=== PATIENT | female | born 1995 | race Caucasian/White ===

== ENCOUNTER 2017-05-23 09:49 | Day surgery (SDC) | payer OTHER ==
[2017-05-20 15:07] LABS: Urine Appearance CLEAR; Urine Bilirubin NEGATIVE (NEG); Urine Blood NEGATIVE (NEG); Urine Color YELLOW; Urine Glucose NEGATIVE (NEG); Urine Protein NEGATIVE (NEG); Urine Specific Gravity 1.025 (1.005-1.030); Urine Urobilinogen 0.2 mg/dL (0.2-1.0)
[2017-05-20 15:11] LABS: Absolute Lymphocytes (CBC) 1.7 K/uL (0.7-4.9); Absolute Monocytes 0.4 K/uL (0.1-1.3); Absolute Neutrophil 3.5 K/uL (1.8-8.0); Basophils % 0.6 % (0-1.3); Eosinophils % 2.1 % (0-4.4); Hematocrit 38.7 % (36.0-45.0); Lymphocytes % 29.6 % (15.3-44.8); MCH 24.2 pg (27.0-35.0); MCV 78.4 fL (80-100); MPV 10.7 fL (7.6-11.3); Monocytes % 6.9 % (3.3-12.3); RBC Red Blood Cell Count 4.94 M/uL (3.86-4.86)
[2017-05-20 15:15] LABS: Urine Microscopic Reflex NO UMIC
[2017-05-23] MEDS ORDERED: Ringers Lactate 1,000 ML IV ONE ×2 (10:23→13:53)
[2017-05-23] MEDS ORDERED: SCOPOLAMINE HYDROBROMIDE PATCH TD ONE (10:23)
[2017-05-23] MEDS ORDERED: PROPOFOL 200 MG/20 ML VIAL IV ONE (12:51)
[2017-05-23] MEDS ORDERED: FENTANYL CITR 100 MCG/2 ML ONE (12:51)
[2017-05-23] MEDS ORDERED: ROCURONIUM 50 MG/5 ML VIAL IV ONE (12:51)
[2017-05-23] MEDS ORDERED: LIDOCAINE 1% MPF 5 ML VIAL ONE (12:51)
[2017-05-23] MEDS ORDERED: MIDAZOLAM HCL 2 MG/2 ML INJ ONE (12:51)
[2017-05-23] MEDS ORDERED: Phenylephrine HCl 10 MG/ML 1 ML VIAL ONE (13:39)
[2017-05-23] MEDS ORDERED: NS 0.9% VIAL 10 ML ONE (13:39)
[2017-05-23] MEDS ORDERED: DEXAMETHASONE 10 MG/ML VIAL ONE (13:49)
[2017-05-23] MEDS ORDERED: KETOROLAC 30 MG/ML INJ ONE (13:49)
[2017-05-23] MEDS ORDERED: ONDANSETRON 4 MG/2 ML VIAL ONE (13:51)
[2017-05-23] MEDS ORDERED: GLYCOPYRROLATE 0.2 MG/ML SYR ONE (14:14)
[2017-05-23] MEDS ORDERED: NEOSTIGMINE 1 MG/ML -5 ML SYRINGE ONE (14:14)
[2017-05-23] MEDS: PROMETHAZINE 25 MG/ML VIAL ONE ×2 (14:25→14:40)
[2017-05-23] MEDS: MEPERIDINE HCL 50 MG/ML AMP ONE ×4 (14:27→14:50)
[2017-05-23] MEDS ORDERED: Mastisol Adhesive Liq ONE (14:28)
[2017-05-23 15:26] VITALS: BP 126/65; TEMP 97.2; O2SAT 100
--- NOTE | 2017-05-24 07:15 | OP ---
Date of Procedure: 05/23/2017 Surgeon: Brinda Grimes MD Preoperative Diagnoses: 1.Low back pain. 2.Heavy periods with irregular cycles. 3.Dysmenorrhea. 4.Anemia. Procedures Performed: Diagnostic hysteroscopy, diagnostic laparoscopy. Anesthesia: General. Estimated Blood Loss: Minimal. Specimens: No specimens. Complications: No complications. Drains: No drains. Condition: Stable. Indications: The patient is a 22-year-old, who has been on NuvaRing. Her abnormal bleeding, pelvic pain, and dysmenorrhea were the reason that she was seeing me. There was intermittent low back pain. However, a few weeks earlier, she had really acute low back pain. She was worked up for her urinar y tract and negative for stone. She has been Dr. Keita's patient for about a year and a half. Co lonoscopy, upper endoscopy all were done and negative. He referred her to me for ruling out INSTRUCTOR PSYCHIATRIC AIDE etio logy. She has taken naproxen in the past for dysmenorrhea. Her dysmenorrhea is severe and mostly in the entire pelvic area. Her low back pain starts even prior to the onset of period and is severe at the time of the period. Bowels, she denies being having pain with them and no lower urinary tract s ymptoms during her period. Sexually active, but no vaginal penetration, so the patient has no known deep dyspareunia. On exam, uterus was small, nontender. No adnexal masses. On pelvic ultrasound, n o adnexal masses were noted either. We discussed the options of continued medical treatment since sh e failed combination hormones with the NuvaRing that failed to control her pain. Discussed about Dep ot medroxyprogesterone. We also discussed about the fact that she can continue to use naproxen for h er back pain and also if my workup is negative for endometriosis which is the only possibility, then she will have to return to her GI for this problem. The patient desired to proceed with laparoscopic evaluation for diagnosis and treatment of endometrio sis if present. Diagnostic laparoscopy was also encouraged to be done to rule out any mullerian anom alies. Procedure In Detail: After informed consent was verified, the patient was taken back to the OR, plac ed in a supine fashion on the operating table. After general anesthesia was given, she was placed in dorsal lithotomy position. Pelvic exam was performed. Uterus was found to be anteflexed, small. N o adnexal masses. Abdomen, vulva, vagina, and perineum were prepped and draped in a sterile fashion. Helton was placed to drain the bladder. The cervix was exposed with a bivalve speculum. Anterior lip grasped with 2 A llis clamps. Using the diagnostic SlimLine hysteroscope, the direct hysteroscopy was performed with a 30-degree lens and normal saline for distention medium. The entire cavity was visualized. There a ppeared to be a small indentation of the fundal aspect of the endometrial canal and this could repres ent a small septum; however, this was very small and not very significant. Both tubal ostia were vis ualized. There was a single normal cavity with a single cervix. After the scope was removed, the diagnostic VCare was introduced into the uterus and fixed in place. There was no need for sampling because there were no endometrial abnormalities. After the 1 cm infraumbilical incision was made with the scalpel and using the open laparoscopy techn ique, fascia was opened up and incised, tagged on both sides with 0 Vicryl sutures, and then peritone al cavity entered with S retractors and Ashleigh fixed in place. Site of entry was checked, was unrema rkable. Liver and gallbladder appeared to be unremarkable. The peritoneal surfaces in the upper abd omen were normal. The patient was placed in Trendelenburg position. A 5 mm left lower quadrant port was placed under direct vision and the entire pelvic cavity was surveyed closely including the ovari es, tubes, lateral peritoneum, and the posterior broad ligament on both sides and cul-de-sac and then anterior broad ligaments on both sides and anterior cul-de-sac between the tube and the ovary and be tween the tube and the round ligament. There was no evidence of endometriosis even on close inspecti on, and there was no anatomical distortion of the pelvic organs like the ureter. The plan was to take a look at the appendix and so I lead that to status post appendectomy and the en tire appendix was removed. However, the cecum was found to be significantly dilated and full of feca l matter. This continued all over in the ascending colon, transverse colon, all the way down to the descending colon. However, the sigmoid appeared to be unremarkable and decompressed. Constipation w as a significant abnormality found. There was a small segment of small bowel that was adhered to the right pelvic brim, unsure if this was status post appendectomy or a bowel process. However, no acti ve inflammatory process had been noted here today. After this was done and there was no dilation of tubes or ovaries, I decided to complete the case. On the right ovary, there was a small fibroma whic h is less than 2-3 mm. After all pictures were taken, the scope was removed. Trocars were removed under direct vision. The umbilicus was closed with the help of a 0 Vicryl in [id number] fashion and 4-0 Monocryl interru pted for all skin incisions. VCare and Helton were removed. NuvaRing was removed at the beginning of the case and replaced at the end after washing with normal temperature water. She will follow up wi th me in 1 week. Instrument, needle, and sponge counts were correct at the end of the case. The pat ient tolerated the procedure well. She was extubated in the OR and taken to PACU in stable condition . RODERICK/QUITA Voice ID: [id number] Report ID: [id number]
== END 2017-05-23 16:02 | disposition home or self-care (01) ==
LOC: OR 09:49
PROVIDERS: ATTEND Obstetrics & Gynecology
PROC: 0WJP4ZZ Inspection of Gastrointestinal Tract, Percutaneous Endoscopic Approach (ICD-10-PCS; 2017-05-23)
PROC: 0WJG4ZZ Inspection of Peritoneal Cavity, Percutaneous Endoscopic Approach (ICD-10-PCS; 2017-05-23)
PROC: 0WJJ4ZZ Inspection of Pelvic Cavity, Percutaneous Endoscopic Approach (ICD-10-PCS; 2017-05-23)
PROC: 0UJD8ZZ Inspection of Uterus and Cervix, Via Natural or Artificial Opening Endoscopic (ICD-10-PCS; principal; 2017-05-23 11:30)
DX: N92.1 Excessive and frequent menstruation with irregular cycle (principal); N94.6 Dysmenorrhea, unspecified; D64.9 Anemia, unspecified; M54.5 Low back pain; K59.00 Constipation, unspecified; K21.9 Gastro-esophageal reflux disease without esophagitis; Z90.49 Acquired absence of other specified parts of digestive tract; Z82.49 Family history of ischemic heart disease and other diseases of the circulatory system; Z83.3 Family history of diabetes mellitus; Z80.0 Family history of malignant neoplasm of digestive organs
CPT/HCPCS: 36415; 81003; 81025; 85025; 86850; 86900; 86901; J1100; J2175; J2250; J2370; J2405; J2550; J2710; J3010

== ENCOUNTER 2019-09-07 11:54 | Emergency (ER) | payer BC, OTHER ==
--- OUTSIDE RECORDS SUMMARY | 2019-09-07 14:23 | XMS REPORT | Continuity of Care Document ---
:[address] [facility] t Address [address] [place] [address] Care Team Providers Name Role Phone Doctor Unassigned, Name Attending Clinician Unavailable Estrella Rollins MD Attending Clinician Problems This patient has no known problems. Allergies, Adverse Reactions, Alerts This patient has no known allergies or adverse reactions. Medications This patient has no known medications. Procedures This patient has no known procedures. Encounters Start End Encounter Admission Attending Care Care Encounter Source Date/Time Date/Time Type Type Clinicians Facility Department ID 2018-11-12 2018-11-12 Orders Doctor HENRIQUE [id number] 00:00:00 00:00:00 Only Unassigned, RON [id number] [place] [facility] [id number] 2018-10-31 2018-10-31 Office GE Rollins [id number] 10:36:38 10:54:17 Visit [facility] [id number] Surgical [id number] Specialti [id number] [address] [place] Results This patient has no known results.
--- NOTE | 2019-09-07 15:56 | RAD REPORT ---
EXAM DESCRIPTION: RAD - Chest Pa And Lat (2 Views) - 09/07/2019 3:46 pm CLINICAL HISTORY: COUGH Chest pain. COMPARISON: Chest Pa And Lat (2 Views) dated 07/22/2018; Chest Pa And Lat (2 Views) dated 12/18/2016 FINDINGS: The lungs are clear. The heart is normal in size. No displaced fractures. IMPRESSION: No acute or concerning finding suspected.
--- NOTE | 2019-09-07 16:05 | EDPHYS ---
Physician Documentation [facility] Name: Arlette Blanca Age: 24 yrs Sex: Female : 1995 Arrival Date: 09/07/2019 Time: 11:59 Bed 18 Private MD: MILEY Physician Milan Pittman HPI: 09/06 14:30 This 24 yrs old Female presents to ER via Ambulatory with complaints of Chest cp Tightness, Shortness Of Breath. Historical: - Allergies: 12:27 Tylenol-Codeine #3; ll1 - PSHx: 12:27 Appendectomy; Tonsillectomy; ll1 - Immunization history:: Flu vaccine is not up to date. - Social history:: Smoking status: Patient denies any tobacco usage or history of. Patient/guardian denies using alcohol, street drugs, tobacco products. ROS: 14:35 Constitutional: Positive for chills, Negative for fever, poor PO intake. cp 14:35 Eyes: Negative for injury, pain, redness, and discharge. cp 14:35 ENT: Positive for sore throat, Negative for drainage from ear(s), ear pain, difficulty swallowing, difficulty handling secretions. 14:35 Cardiovascular: Negative for chest pain, edema, palpitations. 14:35 Respiratory: Positive for cough, shortness of breath, Negative for wheezing. 14:35 Abdomen/GI: Negative for abdominal pain, nausea, vomiting, and diarrhea, constipation. 14:35 Back: Negative for radiated pain. 14:35 Skin: Negative for rash. 14:35 Neuro: Negative for altered mental status, headache, weakness. 14:35 All other systems are negative. Exam: 14:40 Constitutional: The patient appears in no acute distress, alert, awake, non-toxic, well cp developed, well nourished. 14:40 Head/Face: Normocephalic, atraumatic. cp 14:40 Eyes: Periorbital structures: appear normal, Conjunctiva: normal, no exudate, no injection, Lids and lashes: appear normal, bilaterally. 14:40 ENT: External ear(s): are unremarkable, Ear canal(s): are normal, clear, TM's: dullness, bilaterally, Nose: is normal, Mouth: Lips: moist, Oral mucosa: pink and intact, moist, Posterior pharynx: Airway: no evidence of obstruction, patent, Tonsils: no enlargement, no exudate, swelling, is not appreciated, erythema, that is mild, exudate, is not appreciated. 14:40 Neck: ROM/movement: is normal, is supple, without pain, no range of motions limitations, no meningismus, no nuchal rigidity, Lymph nodes: no appreciated lymphadenopathy. 14:40 Chest/axilla: Inspection: normal. 14:40 Cardiovascular: Rate: normal, Rhythm: regular, Edema: is not appreciated, JVD: is not appreciated. 14:40 Respiratory: the patient does not display signs of respiratory distress, Respirations: normal, no use of accessory muscles, no retractions, no tachypnea, labored breathing, is not present, Breath sounds: bronchial sounds, are not appreciated, decreased breath sounds, are not appreciated, stridor, is not appreciated, wheezing: is not appreciated. 14:40 Abdomen/GI: Exam negative for discomfort, distension, guarding, Inspection: abdomen appears normal. 14:40 Back: pain, is absent, ROM is normal. 14:50 ECG was reviewed by the Attending Physician. Vital Signs: 12:24 BP 119 / 63; Pulse 97; Resp 18; Temp 98.4; Pulse Ox 95% ; Pain 6/10; ll1 MDM: 14:20 Patient medically screened. ella 15:56 Test interpretation: by ED physician or midlevel provider: chest xray negative for cp focal pneumonia. 16:04 Antibiotic administration: Not indicated, the patient does not have an appreciated cp infiltrate. 16:04 Differential diagnosis: bronchitis, flu, URI, pneumonia. Data reviewed: vital signs, nurses notes, EKG, radiologic studies, plain films. Counseling: I had a detailed discussion with the patient and/or guardian regarding: the historical points, exam findings, and any diagnostic results supporting the discharge/admit diagnosis, radiology results, to return to the emergency department if symptoms worsen or persist or if there are any questions or concerns that arise at home. 09/06 14:26 Order name: Influenza Screen (a \T\ B); Complete Time: 15:59 cp 09/06 14:26 Order name: Strep; Complete Time: 15:59 cp 09/06 14:26 Order name: XRAY Chest Pa And Lat (2 Views); Complete Time: 15:59 09/06 15:59 Interpretation: Report reviewed. 09/06 14:26 Order name: EKG; Complete Time: 14:27 09/06 14:26 Order name: EKG - Nurse/Tech; Complete Time: 15:35 09/06 15:14 Order name: Throat Culture EDRI EC:50 Rate is 85 beats/min. Rhythm is regular. AL interval is normal. QRS interval is normal. cp QT interval is normal. Interpreted by me. Reviewed by me. Administered Medications: No medications were administered Disposition: 09/07 05:45 Co-signature as Attending Physician, Milan Pittman MD I agree with the assessment and [facility] plan of care. Disposition: 09/07/19 16:05 Discharged to Home. Impression: Acute bronchitis, unspecified. - Condition is Stable. - Discharge Instructions: Acute Bronchitis, Adult. - Prescriptions for Guaifenesin AC 10- 100 mg/5 mL Oral Liquid - take 10 milliliters by ORAL route every 4 hours As needed; 200 milliliter. Medrol (Jay Jay) 4 mg Oral Tablets, Dose Pack - take 1 tablet by ORAL route as directed - follow package instructions; 1 packet. Xopenex HFA 45 mcg/actuation Inhalation HFA aerosol inhaler - inhale 2 puff by INHALATION route every 6 hours; 1 Inhaler. - Medication Reconciliation Form, Thank You Letter, Antibiotic Education, Prescription Opioid Use, Work release form form. - Follow up: Private Physician; When: 2 - 3 days; Reason: Recheck today's complaints. - Problem is new. - Symptoms have improved. Signatures: Dispatcher [employer] [facility] Milan Pittman MD MD cha Page, Corey, PA PA cp Harris, Amy, RN RN Anil Price RN RN ll1 Corrections: (The following items were deleted from the chart) 09/06 16:31 16:05 09/07/2019 16:05 Discharged to Home. Impression: Acute bronchitis, unspecified. Condition is Stable. Forms are Medication Reconciliation Form, Thank You Letter, Antibiotic Education, Prescription Opioid Use. Follow up: Private Physician; When: 2 - 3 days; Reason: Recheck today's complaints. Problem is new. Symptoms have improved. cp
--- NOTE | 2019-09-07 16:05 | ER ---
Nurse's Notes [facility] Name: Arlette Blanca Age: 24 yrs Sex: Female : 1995 Arrival Date: 09/07/2019 Time: 11:59 Bed 18 Private MD: Diagnosis: Acute bronchitis, unspecified Presentation: 09/06 12:24 Chief complaint: Patient states: Cough, chest tightness, SOB since 09/02/19. Barnett test ll1 negative. Sent by PCP for further eval. Coronavirus screen: Surgical mask placed on patient. Patient moved to private room, placed in contact and droplet isolation with eye protection until further assessment. Patient reports a cough. Patient reports shortness of breath or difficulty breathing. Patient denies measured and/or subjective temperature greater than 100.4F prior to today's visit. Patient denies travel on a cruise ship or to a country the [facility] currently lists as an affected area. Patient denies contact with known and/or suspected case of COVID-19. covid test negative result today. Ebola Screen: Patient denies travel to an Ebola-affected area in the 21 days before illness onset. Initial Sepsis Screen: Does the patient meet any 2 criteria? HR > 90 bpm. No. Patient's initial sepsis screen is negative. Risk Assessment: Do you want to hurt yourself or someone else? Patient reports no desire to harm self or others. Onset of symptoms was September 02, 2019. 12:24 Method Of Arrival: Ambulatory ll1 12:24 Acuity: IDA 3 ll1 15:40 Initial Sepsis Screen: Does the patient have a suspected source of infection? No. Patient's initial sepsis screen is negative. Historical: - Allergies: 12:27 Tylenol-Codeine #3; ll1 - PSHx: 12:27 Appendectomy; Tonsillectomy; ll1 - Immunization history:: Flu vaccine is not up to date. - Social history:: Smoking status: Patient denies any tobacco usage or history of. Patient/guardian denies using alcohol, street drugs, tobacco products. Screenin:39 Abuse screen: Denies threats or abuse. Nutritional screening: No deficits noted. Tuberculosis screening: No symptoms or risk factors identified. 16:31 Fall Risk None identified. Assessment: 15:36 General: Appears in no apparent distress. Behavior is calm, cooperative, appropriate ah for age. Pain: Complains of pain in chest. Neuro: Level of Consciousness is awake, alert. Cardiovascular: Capillary refill < 3 seconds Patient's skin is warm and dry. Respiratory: Reports cough that is non-productive, Airway is patent Respiratory effort is even, unlabored, Respiratory pattern is regular, symmetrical, Onset: The symptoms/episode began/occurred 6 days. Derm: Skin is intact, is healthy with good turgor. 16:15 Pain: Pain does not radiate. Vital Signs: 12:24 BP 119 / 63; Pulse 97; Resp 18; Temp 98.4; Pulse Ox 95% ; Pain 6/10; ll1 ED Course: 11:59 Patient arrived in ED. mr 12:26 Triage completed. ll1 12:27 Arm band placed on Patient notified of wait time. ll1 13:31 Diana Flaherty, RN is Primary Nurse. 14:10 Milan Seth PA is PHCP. cp 14:10 Milan Pittman MD is Attending Physician. cp 14:51 EKG done, by technology infusion specialist. reviewed by Milan ROBBINS. at1 15:39 Patient has correct armband on for positive identification. Pulse ox on. NIBP on. ah 15:46 XRAY Chest Pa And Lat (2 Views) In Process Unspecified. EDMS 16:15 No provider procedures requiring assistance completed. Patient did not have IV access ah during this emergency room visit. Patient maintains SpO2 saturation greater than 95% on room air. Administered Medications: No medications were administered Outcome: 16:05 Discharge ordered by MD. cp 16:15 Discharged to home ambulatory. 16:15 Condition: good 16:15 Discharge instructions given to patient, Instructed on discharge instructions, follow up and referral plans. Demonstrated understanding of instructions, follow-up care, medications, Prescriptions given X 3. 16:31 Patient left the ED. Signatures: Dispatcher [employer] EDMS Shannon Remy Amanda, database security expert EKG Tat1 Milan Seth PA PA cp Harris, Amy, RN RN Anil Price RN RN ll1 Corrections: (The following items were deleted from the chart) 12:27 12:24 BP 119 / 63; Pulse 97bpm; Resp 18bpm; Pulse Ox 94%; Temp 98.4F; Pain 6/10; ll1 ll1
[2019-09-07 16:41] VITALS: BP 119/63; TEMP 98.4; O2SAT 95
--- NOTE | 2019-09-08 12:11 | EKG ---
Test Date: 2019-09-07 Test Time: 14:42:57 Tab Card Press Operator: KALLIE MEASUREMENT RESULTS: Intervals: Rate: 85 DE: 138 QRSD: 74 QT: 362 QTc: 430 [place]: P: 21 DE: 138 QRS: 15 T: 39 INTERPRETIVE STATEMENTS: Normal sinus rhythm Normal ECG No previous ECG available for comparison Electronically Signed On 09-08-19 12:09:34 CDT by Cristi Pressley
== END 2019-09-07 16:31 | disposition home or self-care (01) ==
LOC: ER 11:54
DX: J20.9 Acute bronchitis, unspecified (principal); Z88.6 Allergy status to analgesic agent
CPT/HCPCS: 71046; 87070; 87081; 87804; 93005; 99284

== ENCOUNTER 2019-09-08 12:52 | Emergency (ER) | payer BC, OTHER ==
--- NOTE | 2019-09-08 15:34 | ER ---
Nurse's Notes [facility] Name: Arlette Blanca Age: 24 yrs Sex: Female : 1995 Arrival Date: 09/08/2019 Time: 12:56 Bed Waiting Private MD: Diagnosis: Presentation: 09/07 13:46 Coronavirus screen: Surgical mask placed on patient. Patient moved to private room, ll1 placed in contact and droplet isolation with eye protection until further assessment. Patient reports a cough. Patient reports shortness of breath or difficulty breathing. Patient denies measured and/or subjective temperature greater than 100.4F prior to today's visit. Patient denies travel on a cruise ship or to a country the [facility] currently lists as an affected area. Patient reports contact with known and/or suspected case of COVID-19. Ebola Screen: Patient denies travel to an Ebola-affected area in the 21 days before illness onset. Initial Sepsis Screen: Does the patient meet any 2 criteria? No. Patient's initial sepsis screen is negative. Risk Assessment: Do you want to hurt yourself or someone else? Patient reports no desire to harm self or others. Onset of symptoms was September 03, 2019. 13:46 Method Of Arrival: Ambulatory ll1 13:46 Acuity: IDA 3 ll1 13:47 Chief complaint: Patient states: SOB has gotten worse since visit yesterday. Had ll1 negative covid test. Couldn't get inhaler filled, needed authorization. Historical: - Allergies: 13:45 Tylenol-Codeine #3; ll1 - PSHx: 13:45 Appendectomy; Tonsillectomy; ll1 - Immunization history:: Flu vaccine is not up to date. - Social history:: Smoking status: Patient denies any tobacco usage or history of. Patient/guardian denies using alcohol, street drugs, tobacco products. Vital Signs: 13:46 BP 114 / 62; Pulse 90; Resp 18; Temp 98.3; Pulse Ox 97% ; Pain 3/10; ll1 ED Course: 12:56 Patient arrived in ED. mr 13:47 Triage completed. ll1 13:48 Arm band placed on Patient notified of wait time. ll1 Administered Medications: No medications were administered Outcome: 15:33 Patient left the ED. ll1 Signatures: Shannon Remy, Terrelly, RN RN ll1 Corrections: (The following items were deleted from the chart) 13:48 13:46 Coronavirus screen: Proceed with normal triage. Patient reports a cough. Patient ll1 reports shortness of breath or difficulty breathing. Patient denies measured and/or subjective temperature greater than 100.4F prior to today's visit. Patient denies travel on a cruise ship or to a country the [facility] currently lists as an affected area. Patient reports contact with known and/or suspected case of COVID-19. ll1
[2019-09-08 15:46] VITALS: BP 114/62; TEMP 98.3; O2SAT 97
--- OUTSIDE RECORDS SUMMARY | 2019-09-08 17:00 | XMS REPORT | Continuity of Care Document ---
:1995 Author Organization [facility] t Address [address] [place] [address] Care Team Providers Name Role Phone Doctor [...] ID 2018-11-12 2018-11-12 Orders Doctor HENRIQUE [id number] 00:00:00 00:00:00 Only Unassigned, RON [id number] [place] [facility] [id number] 2018-10-31 2018-10-31 Office GE Rollins [id number] 10:36:38 10:54:17 Visit [facility] [id number] Surgical [id number] Specialti [id number] 198 [place] Results This patient has no known results.
== END 2019-09-08 15:33 | disposition left against medical advice (07) ==
LOC: ER 12:52
DX: Z53.21 Procedure and treatment not carried out due to patient leaving prior to being seen by health care provider (principal)
CPT/HCPCS: 99281

== ENCOUNTER 2023-01-01 16:30 | Emergency (ER) | payer OTHER ==
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
[2023-01-01] MEDS ORDERED: LIDOCAINE 1% MPF 2 ML AMPULE ONE (17:02)
[2023-01-01] MEDS ORDERED: HYDROCODONE/CHLORPHEN 5 ML/OSYR ONE (17:04)
[2023-01-01] MEDS ORDERED: PROMETHAZINE 25 MG TABLET ONE (17:04)
--- NOTE | 2023-01-01 17:58 | ER ---
Nurse's Notes [facility] Name: Arlette Blanca Age: 27 yrs Sex: Female : 1995 Arrival Date: 01/01/2023 Time: 16:30 Bed 11 Private MD: Diagnosis: Influenza due to other identified influenza virus with other respiratory manifestations Presentation: 01/01 16:41 Chief complaint: Patient states: Cough onset that got worse yesterday. Pt cm10 states that she was seen at urgent care yesterday and was told that she was developing pneumonia and was given medicine. Coronavirus screen: Vaccine status: Patient reports being unvaccinated. Client denies travel out of the [place] in the last 14 days. Ebola Screen: Patient denies travel to an Ebola-affected area in the 21 days before illness onset. No symptoms or risks identified at this time. Initial Sepsis Screen: Does the patient meet any 2 criteria? No. Patient's initial sepsis screen is negative. Does the patient have a suspected source of infection? No. Patient's initial sepsis screen is negative. Risk Assessment: Do you want to hurt yourself or someone else? Patient reports no desire to harm self or others. Onset of symptoms was January 01, 2023. 16:41 Method Of Arrival: Ambulatory cm10 16:41 Acuity: IDA 3 cm10 Historical: - Allergies: 16:44 Codeine; cm10 - PMHx: 16:46 Anxiety; cm10 - Immunization history:: Adult Immunizations unknown. - Social history:: Smoking status: Patient denies any tobacco usage or history of. Screenin:07 [facility] ED Fall Risk Assessment (Adult) History of falling in the last 3 months, tm6 including since admission No falls in past 3 months (0 pts). Abuse screen: Denies threats or abuse. Denies injuries from another. Nutritional screening: No deficits noted. Tuberculosis screening: No symptoms or risk factors identified. Assessment: 17:07 General: Appears uncomfortable, Behavior is calm, cooperative, appropriate for age. tm6 Pain: Denies pain. Neuro: Level of Consciousness is awake, alert, obeys commands, Oriented to person, place, time, situation, Appropriate for age. Cardiovascular: Capillary refill < 3 seconds Patient's skin is warm and dry. Respiratory: Reports cough that is non-productive, persistent Airway is patent Respiratory effort is even, unlabored, Respiratory pattern is regular, symmetrical, Breath sounds are diminished. GI: Abdomen is round non-distended. : No signs and/or symptoms were reported regarding the genitourinary system. EENT: No signs and/or symptoms were reported regarding the EENT system. Derm: No signs and/or symptoms reported regarding the dermatologic system. Musculoskeletal: No signs and/or symptoms reported regarding the musculoskeletal system. Vital Signs: 16:41 BP 118 / 69; Pulse 132; Resp 20; Temp 98.3(O); Pulse Ox 100% ; Weight 92.99 kg; Height cm10 5 ft. 2 in. ; 17:06 BP 132 / 83; Pulse 100; Resp 22; Temp 98.9; Pulse Ox 99% ; tm6 16:41 Body Mass Index 37.49 (92.99 kg, 157.48 cm) cm10 ED Course: 16:33 Patient arrived in ED. mr 16:34 Shirley Page, [facility] snw 16:34 Antione Babcock MD is Attending Physician. snw 16:44 Triage completed. cm10 16:45 Arm band placed on Patient placed in an exam room, on a stretcher. cm10 16:47 Dennis Valadez, RN is Primary Nurse. tm6 17:07 Patient has correct armband on for positive identification. Bed in low position. Call tm6 light in reach. Side rails up X 1. Provided Education on: breathing treatment. Client placed on continuous cardiac and pulse oximetry monitoring. NIBP monitoring applied. Door closed. Noise minimized. 17:07 No provider procedures requiring assistance completed. tm6 17:58 Chest Pa And Lat (2 Views) XRAY In Process Unspecified. EDMS 18:05 Patient did not have IV access during this emergency room visit. tm6 Administered Medications: 17:06 Drug: Tussionex Pennkinetic ER PO Suspension 5 ml PO once Route: PO; tm6 17:06 Drug: Promethazine PO 25 mg PO once Route: PO; tm6 17:06 Drug: Lidocaine Infiltration (1 %) 2 ml 5 ml Infiltration once; to bedside and add 3ml tm6 NS and then nebulize at 8L/min Volume: 5 ml; Route: Infiltration; Medication: 17:07 VIS not applicable for this client. tm6 Outcome: 17:57 Discharge ordered by MD. diaz 18:05 Discharged to home ambulatory, tm6 18:05 Condition: stable 18:05 Discharge instructions given to patient, Instructed on discharge instructions, follow up and referral plans. medication usage, Demonstrated understanding of instructions, follow-up care, medications, Prescriptions given X 2, 18:06 Patient left the ED. tm6 Signatures: Dispatcher [employer] EDMS Shirley Page, OPERATIVE SUPERVISOR-C OPERATIVE SUPERVISOR-Csnw Shannon Remy, Zac Reg mr Bryanna Weber, RN RN cm10 Dennis Valadez RN RN tm6 Corrections: (The following items were deleted from the chart) 16:46 16:44 Allergies: Tylenol-Codeine #3; 10 10 16:46 16:44 PMHx: Depressive disorder; cm10 cm10
--- NOTE | 2023-01-01 17:58 | EDPHYS ---
Physician Documentation [facility] Name: Arlette Blanca Age: 27 yrs Sex: Female : 1995 Arrival Date: 01/01/2023 Time: 16:30 Bed 11 Private MD: ED Physician Antione Babcock HPI: 01/01 16:50 This 27 yrs old Female presents to ER via Ambulatory with complaints of Cough, snw Congestion, Breathing Difficulty. 16:50 The patient or guardian reports cough, flu symptoms, myalgias, no appetite. Onset: The snw symptoms/episode began/occurred 5 day(s) ago, and became persistent. Associated signs and symptoms: Pertinent positives: chest pain, with cough, rhinorrhea, sore throat, incessant cough. The patient has experienced similar episodes in the past, hx of chronic bronchitis. Historical: - Allergies: 16:44 Codeine; cm10 - PMHx: 16:46 Anxiety; cm10 - Immunization history:: Adult Immunizations unknown. - Social history:: Smoking status: Patient denies any tobacco usage or history of. ROS: 16:47 Eyes: Negative for injury, pain, redness, and discharge, ENT: Negative for injury, snw pain, and discharge, Neck: Negative for injury, pain, and swelling, 16:47 Abdomen/GI: Negative for abdominal pain, nausea, vomiting, diarrhea, and constipation, Back: Negative for injury and pain, : Negative for injury, bleeding, discharge, and swelling, MS/Extremity: Negative for injury and deformity, Skin: Negative for injury, rash, and discoloration, Neuro: Negative for headache, weakness, numbness, tingling, and seizure, Psych: Negative for depression, anxiety, suicide ideation, homicidal ideation, and hallucinations, 16:47 Constitutional: Positive for body aches, fatigue, malaise, 16:47 Cardiovascular: Positive for chest pain, 16:47 Respiratory: Positive for cough, Exam: 16:47 Constitutional: This is a well developed, well nourished patient who is awake, alert, snw and in no acute distress. Head/Face: Normocephalic, atraumatic. Eyes: Pupils equal round and reactive to light, extra-ocular motions intact. Lids and lashes normal. Conjunctiva and sclera are non-icteric and not injected. Cornea within normal limits. Periorbital areas with no swelling, redness, or edema. ENT: Nares patent. No nasal discharge, no septal abnormalities noted. Tympanic membranes are normal and external auditory canals are clear. Oropharynx with no redness, swelling, or masses, exudates, or evidence of obstruction, uvula midline. Mucous membranes moist. Neck: Trachea midline, no thyromegaly or masses palpated, and no cervical lymphadenopathy. Supple, full range of motion without nuchal rigidity, or vertebral point tenderness. No Meningismus. Chest/axilla: Normal chest wall appearance and motion. Nontender with no deformity. No lesions are appreciated. 16:47 Abdomen/GI: Soft, non-tender, with normal bowel sounds. No distension or tympany. No guarding or rebound. No evidence of tenderness throughout. Back: No spinal tenderness. No costovertebral tenderness. Full range of motion. Skin: Warm, dry with normal turgor. Normal color with no rashes, no lesions, and no evidence of cellulitis. MS/ Extremity: Pulses equal, no cyanosis. Neurovascular intact. Full, normal range of motion. Neuro: Awake and alert, GCS 15, oriented to person, place, time, and situation. Cranial nerves II-XII grossly intact. Motor strength 5/5 in all extremities. Sensory grossly intact. Cerebellar exam normal. Normal gait. Psych: Awake, alert, with orientation to person, place and time. Behavior, mood, and affect are within normal limits. 16:47 Cardiovascular: Rate: tachycardic, Rhythm: regular, Pulses: no pulse deficits are appreciated, 16:47 Respiratory: the patient does not display signs of respiratory distress, Respirations: normal, Breath sounds: are clear throughout, bronchial sounds, bronchitic cough, Vital Signs: 16:41 BP 118 / 69; Pulse 132; Resp 20; Temp 98.3(O); Pulse Ox 100% ; Weight 92.99 kg; Height cm10 5 ft. 2 in. ; 17:06 BP 132 / 83; Pulse 100; Resp 22; Temp 98.9; Pulse Ox 99% ; tm6 16:41 Body Mass Index 37.49 (92.99 kg, 157.48 cm) cm10 MDM: 16:34 Patient medically screened. snw 17:59 Differential Diagnosis: Bronchitis Influenza Upper Respiratory Infection Sinusitis snw Asthma Exacerbation. Data reviewed: vital signs, nurses notes, lab test result(s), Flu: positive radiologic studies. I considered the following discharge prescriptions or medication management in the emergency department Medications were administered in the Emergency Department. See MAR. Counseling: I had a detailed discussion with the patient and/or guardian regarding the historical points, exam findings, and any diagnostic results supporting the discharge/admit diagnosis, the presence of at least one elevated blood pressure reading (>120/80) during this emergency department visit, lab results, radiology results, the need for outpatient follow up, for definitive care, to return to the emergency department if symptoms worsen or persist or if there are any questions or concerns that arise at home. Response to treatment: the patient's symptoms have mildly improved after treatment. Special discussion: Based on the history and exam findings, there is no indication for further emergent testing or inpatient evaluation. I discussed with the patient/guardian the need to see the primary care provider for further evaluation of the symptoms. 01/01 16:46 Order name: Flu; Complete Time: 17:42 snw 01/01 16:46 Order name: COVID-19 SARS RT PCR; Complete Time: 17:57 snw 01/01 16:46 Order name: Chest Pa And Lat (2 Views) XRAY snw Administered Medications: 17:06 Drug: Tussionex Pennkinetic ER PO Suspension 5 ml PO once Route: PO; tm6 17:06 Drug: Promethazine PO 25 mg PO once Route: PO; tm6 17:06 Drug: Lidocaine Infiltration (1 %) 2 ml 5 ml Infiltration once; to bedside and add 3ml tm6 NS and then nebulize at 8L/min Volume: 5 ml; Route: Infiltration; Disposition Summary: 01/01/23 17:57 Discharge Ordered Notes: Location: Home snw Condition: Stable snw Diagnosis - Influenza due to other identified influenza virus with other respiratory snw manifestations Followup: snw - With: Emergency Department - When: As needed - Reason: Worsening of condition Followup: snw - With: Private Physician - When: 2 - 3 days - Reason: Recheck today's complaints, Continuance of care, Re-evaluation by your physician Discharge Instructions: - Discharge Summary Sheet snw - Influenza, Adult snw - Cough, Adult snw - Rehydration, Adult snw Forms: - Work release form snw - Medication Reconciliation Form snw - Thank You Letter snw - Antibiotic Education snw - Prescription Opioid Use snw - Patient Portal Instructions snw - Leadership Thank You Letter snw Prescriptions: - Tramadol 50 mg Oral Tablet - take 1 tablet ORAL route every 8 hours as needed; 12 tablet; Refills: 0, snw Product Selection Permitted - promethazine 25 mg Oral Tablet - take 1 tablet ORAL route every 6 hours As needed; 20 tablet; Refills: 0, snw Product Selection Permitted Signatures: Dispatcher [employer] EDShirley Omalley FNP-C [employer]-Bryanna Castano RN RN cm10 Dennis Valadez RN RN tm6 Corrections: (The following items were deleted from the chart) 16:46 16:44 Allergies: Tylenol-Codeine #3; cm10 cm10 16:46 16:44 PMHx: Depressive disorder; cm10 cm10
--- NOTE | 2023-01-01 18:09 | RAD REPORT ---
EXAM DESCRIPTION: RAD - Chest Pa And Lat (2 Views) - 01/01/2023 5:57 pm CLINICAL HISTORY: Chest pain;Cough Chest pain. COMPARISON: <Comparisons> FINDINGS: Interstitial markings are mildly prominent suggesting viral infection or asthma. Chronic b ronchitis is another possibility. No focal consolidation typical of pneumonia seen. The heart is uppe r limit normal in size.
[2023-01-01 18:11] VITALS: BP 132/83; TEMP 98.9; O2SAT 99
== END 2023-01-01 18:06 | disposition home or self-care (01) ==
LOC: ER 16:30
DX: J10.1 Influenza due to other identified influenza virus with other respiratory manifestations (principal); Z11.52 Encounter for screening for COVID-19; Z88.5 Allergy status to narcotic agent
CPT/HCPCS: 87635; 87804 ×2; 71046; 99284; Q0169